=== PATIENT | female | born 1960 | race Caucasian/White ===

== ENCOUNTER 2018-08-14 08:13 | Emergency (ER) | payer BC ==
[2018-08-14 08:58] VITALS: BP 117/75
--- NOTE | 2018-08-14 09:45 | UC ---
Complaint Female HPI - HPI Summary HPI Summary: 58 yo female with dysuria/urgency and frequency x 3 days no f/c now with sore throat and pnd x 1 day no cp or sob - History Of Current Complaint Chief Complaint: UCGeneralIllness Stated Complaint: URINARY,HEADACHE,SORE THROAT Time Seen by Provider: 08/14/18 09:15 Hx Obtained From: Patient Onset/Duration: Gradual Onset, Lasting Days Timing: Intermittent, Lasting Minutes Severity Initially: Moderate Pain Intensity: 0 - 5 with urination Pain Scale Used: 0-10 Numeric Character: Burning Aggravating Factor(s): Urination Associated Signs And Symptoms: Negative: Fever, Back Pain, Vaginal Bleeding/ Discharge, Vaginal Discharge, Nausea, Vomiting(# Of Episodes =), Genital Swelling, Genital Blisters, Retained Foregin Body (Specify) - Allergies/Home Medications Allergies/Adverse Reactions: Allergies Allergy/AdvReac Type Severity Reaction Status Date / Time No Known Allergies Allergy Verified 08/14/18 08:58 Home Medications: Home Medications NK [No Home Medications Reported] 08/14/18 [History Confirmed 08/14/18] PMH/Surg Hx/FS Hx/Imm Hx Previously Healthy: Yes Cancer History: Other Other Cancer History: lymphoma - Surgical History Surgical History: Yes Surgery Procedure, Year, and Place: biopsy of lymph nodes... - Family History Known Family History: Positive: Hypertension Negative: Renal Disease - Social History Alcohol Use: None Substance Use Type: None Smoking Status (MU): Never Smoked Tobacco Review of Systems All Other Systems Reviewed And Are Negative: Yes Constitutional: Positive: Negative Skin: Positive: Negative Eyes: Positive: Negative ENT: Positive: Sore Throat, Sinus Congestion Respiratory: Positive: Negative Cardiovascular: Positive: Negative Gastrointestinal: Positive: Negative Genitourinary: Positive: Dysuria, Frequency, Urgency Motor: Positive: Negative Neurovascular: Positive: Negative Musculoskeletal: Positive: Negative Neurological: Positive: Negative Psychological: Positive: Negative Physical Exam Triage Information Reviewed: Yes Appearance: Well-Appearing, No Pain Distress, Well-Nourished Vital Signs: Initial Vital Signs Temp 97.8 F 08/14/18 08:49 Pulse 66 08/14/18 08:49 Resp 16 08/14/18 08:49 BP 117/75 08/14/18 08:49 Pulse Ox 100 08/14/18 08:49 Eyes: Positive: Conjunctiva Clear, Conjunctiva Inflamed ENT: Positive: Pharyngeal erythema - slight, TMs normal, Uvula midline. Negative: Nasal congestion, Nasal drainage, TM bulging, TM dull, TM red, Tonsillar swelling, Tonsillar exudate, Muffled voice, Hoarse voice Dental Exam: Normal Neck: Positive: Supple, Nontender, No Lymphadenopathy Respiratory: Positive: Lungs clear, Normal breath sounds, No respiratory distress Cardiovascular: Positive: RRR, No Murmur Abdomen Description: Positive: Nontender, No Organomegaly, Soft. Negative: CVA Tenderness (R), CVA Tenderness (L) Neurological: Positive: Alert Psychological Exam: Normal Skin Exam: Normal Complaint Female Dx - Course Course Of Treatment: UA negative strep negative Pt declines premarin cr and/or pyridium she has no vaginal discharge or itching - Differential Dx/Diagnosis Provider Diagnosis: Dysuria, Pharyngitis Discharge - Sign-Out/Discharge Documenting (check all that apply): Patient Departure All imaging exams completed and their final reports reviewed: No Studies - Discharge Plan Condition: Stable Disposition: HOME Patient Education Materials: Pharyngitis (ED), Dysuria (ED) Referrals: Gini Almazan NP [Primary Care Provider] - 3 Days (if not better) Additional Instructions: strep test negative URINE CULTURE PENDING - Billing Disposition and Condition Condition: STABLE Disposition: Home
== END 2018-08-14 09:51 | disposition home or self-care (01) ==
LOC: UCCORT 08:13
DX: J02.9 Acute pharyngitis, unspecified (principal); Z85.72 Personal history of non-Hodgkin lymphomas
CPT/HCPCS: 81003; 87086; 87651; 99211; G0463